=== PATIENT | male | born 1970 | race Caucasian/White ===

== ENCOUNTER → 2016-10-01 | Outpatient (REF) | LOC: WSOH 12:44 → EDBD 12:44 | DX: Z02.89 Encounter for other administrative examinations (principal) ==

== ENCOUNTER → 2016-11-12 | Outpatient (REF) | LOC: WSOH 10:56 | DX: Z02.1 Encounter for pre-employment examination (principal) ==

== ENCOUNTER → 2016-12-21 | Outpatient (REF) | LOC: WSOH 10:23 | DX: Z02.1 Encounter for pre-employment examination (principal) ==